=== PATIENT | female | born 1970 | race Caucasian/White ===

== ENCOUNTER 2018-05-02 23:02 | Inpatient (IN) | payer OTHER ==
[2018-05-03] MEDS ORDERED: BISACODYL 10 MG SUPP PR
[2018-05-03] MEDS ORDERED: AL HYDROX/MG HYDROX/SIMETH 30 ML CUP PO (01:30)
[2018-05-03] MEDS ORDERED: ACETAMINOPHEN 325 MG TAB PO (01:30)
[2018-05-03] MEDS ORDERED: OXYCODONE/ACETAMINOPHEN (10/325) TAB PO ×3 (01:30→21:30)
[2018-05-03] MEDS ORDERED: PROCHLORPERAZINE 10 MG TAB PO (01:30)
[2018-05-03] MEDS ORDERED: NACL 0.9% 3 ML SYG IV (01:30)
[2018-05-03] MEDS: OXYCODONE/ACETAMINOPHEN (10/325) TAB PO ×5 (02:35→23:54)
[2018-05-03 07:09] LABS: ADD MAN DIFF? NO
[2018-05-03 07:14] LABS: WHITE BLOOD COUNT 5.3 10^3/ul (4.8-10.8)
[2018-05-03 07:14] LABS: BASOPHILS % 0.2 % (0.0-2.0); EOSINOPHILS # 0.2 10^3/ul (0.0-0.5); EOSINOPHILS % 3.4 % (0.0-7.0); HEMATOCRIT 25.1 % (37.0-47.0); HEMOGLOBIN 8.1 g/dl (12.0-16.0); LYMPHOCYTES # 1.6 10^3/ul (0.8-2.9); LYMPHOCYTES % 30.7 % (15.0-51.0); MEAN CORPUSCULAR HEMOGLOBIN 29.3 pg (29.0-33.0); MEAN CORPUSCULAR HGB CONC 32.3 g/dl (32.0-37.0); MEAN CORPUSCULAR VOLUME 90.9 fl (82.0-101.0); MEAN PLATELET VOLUME 9.9 fl (7.4-10.4); MONOCYTE # 0.5 10^3/ul (0.3-0.9); MONOCYTES % 9.7 % (0.0-11.0); NEUTROPHILS % 55.4 % (39.0-77.0); PLATELET COUNT 319 10^3/UL (140-415); RED BLOOD COUNT 2.76 10^6/ul (4.20-5.40); RED CELL DISTRIBUTION WIDTH 12.9 % (11.5-14.5)
[2018-05-03 07:34] LABS: ALANINE AMINOTRANSFERASE 37 IU/L (13-69); ALBUMIN 2.6 g/dl (3.3-4.9); ALBUMIN/GLOBULIN RATIO 0.89; ALKALINE PHOSPHATASE 101 IU/L (42-121); ANION GAP 1 (5-13); ASPARTATE AMINO TRANSFERASE 34 IU/L (15-46); BILIRUBIN,INDIRECT 0.3 mg/dl (0-1.1); BILIRUBIN,TOTAL 0.3 mg/dl (0.2-1.3); BLOOD UREA NITROGEN 7 mg/dl (7-20); CALCIUM 8.3 mg/dl (8.4-10.2); CARBON DIOXIDE 32 mmol/L (21-31); CHLORIDE 103 mmol/L (97-110); CREATININE 0.45 mg/dl (0.44-1.00); GLUCOSE 103 mg/dl (70-220); POTASSIUM 3.9 mmol/L (3.5-5.1); SODIUM 136 mmol/L (135-144); TOTAL PROTEIN 5.5 g/dl (6.1-8.1)
[2018-05-03] MEDS: TRIAMCINOLONE ACET 0.1% ORAB 5 GM MT (08:35)
[2018-05-03] MEDS: LIDOCAINE 2% VISC 15 ML CUP TOP (13:52)
[2018-05-03] MEDS: POLYETHYLENE GLYCOL 17 GM PACKET PO (13:53)
[2018-05-03 14:11] LABS: ADD UMIC YES; UR ASCORBIC ACID NEGATIVE (NEGATIVE); UR BACTERIA FEW /HPF (NONE SEEN); UR BILIRUBIN (Dip) NEGATIVE (NEGATIVE); UR BLOOD (Dip) 2+ mg/dL (NEGATIVE); UR CLARITY CLEAR (CLEAR); UR COLOR YELLOW (YELLOW); UR GLUCOSE (Dip) NEGATIVE (NEGATIVE); UR KETONES (Dip) NEGATIVE (NEGATIVE); UR LEUKOCYTE ESTERASE (Dip) NEGATIVE Leu/ul (NEGATIVE); UR NITRITE (Dip) NEGATIVE (NEGATIVE); UR RBC 2 /HPF (0-5); UR SQUAMOUS EPITHELIAL CELL FEW /HPF (FEW); UR TOTAL PROTEIN (Dip) NEGATIVE (NEGATIVE); UR UROBILINOGEN (Dip) NEGATIVE (NEGATIVE); UR WBC 2 /HPF (0-5)
[2018-05-03] MEDS: DOCUSATE SODIUM 100 MG CAP PO ×2 (20:01→21:59)
[2018-05-03] MEDS: SENNA TAB PO (20:01)
[2018-05-03] MEDS: SOD FERRIC GLUC COMPLX 125 MG in SOD CHLORIDE 0.9% 100 ML IVPB (21:58)
[2018-05-04] MEDS: OXYCODONE/ACETAMINOPHEN (10/325) TAB PO ×6 (04:17→23:52)
[2018-05-04] MEDS: DOCUSATE SODIUM 100 MG CAP PO ×2 (08:18→20:00)
[2018-05-04] MEDS: POLYETHYLENE GLYCOL 17 GM PACKET PO (08:18)
[2018-05-04] MEDS: TRIAMCINOLONE ACET 0.1% ORAB 5 GM MT ×3 (08:35→18:39)
[2018-05-04] MEDS: SOD FERRIC GLUC COMPLX 125 MG in SOD CHLORIDE 0.9% 100 ML IVPB (17:16)
[2018-05-04] MEDS: SENNA TAB PO (20:01)
[2018-05-05] MEDS: OXYCODONE/ACETAMINOPHEN (10/325) TAB PO ×6 (04:43→23:56)
[2018-05-05] MEDS: METHOCARBAMOL 750 MG TAB PO (04:46)
[2018-05-05] MEDS: POLYETHYLENE GLYCOL 17 GM PACKET PO (08:28)
[2018-05-05] MEDS: DOCUSATE SODIUM 100 MG CAP PO ×2 (08:28→21:00)
[2018-05-05] MEDS: TRIAMCINOLONE ACET 0.1% ORAB 5 GM MT ×3 (08:32→18:06)
[2018-05-05] MEDS: METOPROLOL (XL) 25 MG TAB PO ×2 (09:10→20:02)
[2018-05-05] MEDS: BACLOFEN 10 MG TAB PO ×2 (12:12→19:57)
[2018-05-05] MEDS: SOD FERRIC GLUC COMPLX 125 MG in SOD CHLORIDE 0.9% 100 ML IVPB (15:48)
[2018-05-05] MEDS: SENNA TAB PO (21:00)
[2018-05-06] MEDS: OXYCODONE/ACETAMINOPHEN (10/325) TAB PO ×6 (03:53→23:55)
[2018-05-06 06:38] LABS: ADD MAN DIFF? NO
[2018-05-06 06:45] LABS: BASOPHILS % 0.3 % (0.0-2.0); EOSINOPHILS # 0.1 10^3/ul (0.0-0.5); EOSINOPHILS % 1.9 % (0.0-7.0); HEMATOCRIT 29.6 % (37.0-47.0); HEMOGLOBIN 9.6 g/dl (12.0-16.0); LYMPHOCYTES # 1.8 10^3/ul (0.8-2.9); LYMPHOCYTES % 28.9 % (15.0-51.0); MEAN CORPUSCULAR HGB CONC 32.4 g/dl (32.0-37.0); MEAN CORPUSCULAR VOLUME 89.4 fl (82.0-101.0); MEAN PLATELET VOLUME 9.5 fl (7.4-10.4); MONOCYTE # 0.4 10^3/ul (0.3-0.9); MONOCYTES % 7.1 % (0.0-11.0); NEUTROPHIL # 3.8 10^3/ul (1.6-7.5); NEUTROPHILS % 61.3 % (39.0-77.0); PLATELET COUNT 442 10^3/UL (140-415); RED BLOOD COUNT 3.31 10^6/ul (4.20-5.40); RED CELL DISTRIBUTION WIDTH 13.2 % (11.5-14.5)
[2018-05-06 06:45] LABS: WHITE BLOOD COUNT 6.2 10^3/ul (4.8-10.8)
[2018-05-06 07:21] LABS: ANION GAP 9 (5-13); BLOOD UREA NITROGEN 10 mg/dl (7-20); CALCIUM 8.9 mg/dl (8.4-10.2); CARBON DIOXIDE 26 mmol/L (21-31); CHLORIDE 102 mmol/L (97-110); CREATININE 0.53 mg/dl (0.44-1.00); GLUCOSE 98 mg/dl (70-220); MAGNESIUM 1.9 mg/dl (1.7-2.5); PHOSPHORUS 3.6 mg/dl (2.5-4.9); POTASSIUM 4.1 mmol/L (3.5-5.1); SODIUM 137 mmol/L (135-144)
[2018-05-06] MEDS: TRIAMCINOLONE ACET 0.1% ORAB 5 GM MT ×3 (08:35→19:21)
[2018-05-06] MEDS: POLYETHYLENE GLYCOL 17 GM PACKET PO (09:00)
[2018-05-06] MEDS: FERROUS FUMARATE (SR) TAB PO ×2 (10:54→20:01)
[2018-05-06] MEDS: DOCUSATE SODIUM 100 MG CAP PO ×2 (10:54→20:01)
[2018-05-06] MEDS: BACLOFEN 10 MG TAB PO ×3 (10:55→20:01)
[2018-05-06] MEDS: METOPROLOL (XL) 50 MG TAB PO ×2 (10:57→20:01)
[2018-05-06] MEDS: SENNA TAB PO (20:01)
[2018-05-07] MEDS: OXYCODONE/ACETAMINOPHEN (10/325) TAB PO ×5 (03:40→20:50)
[2018-05-07] MEDS: POLYETHYLENE GLYCOL 17 GM PACKET PO (08:59)
[2018-05-07] MEDS: FERROUS FUMARATE (SR) TAB PO ×2 (09:04→20:41)
[2018-05-07] MEDS: BACLOFEN 10 MG TAB PO ×3 (09:05→20:41)
[2018-05-07] MEDS: TRIAMCINOLONE ACET 0.1% ORAB 5 GM MT ×3 (09:05→16:27)
[2018-05-07] MEDS: DOCUSATE SODIUM 100 MG CAP PO ×2 (09:09→21:00)
[2018-05-07] MEDS: METOPROLOL (XL) 50 MG TAB PO ×2 (09:10→20:48)
[2018-05-07] MEDS: SENNA TAB PO (21:00)
[2018-05-08] MEDS: OXYCODONE/ACETAMINOPHEN (10/325) TAB PO ×6 (00:08→19:49)
[2018-05-08] MEDS: DOCUSATE SODIUM 100 MG CAP PO ×2 (08:14→21:00)
[2018-05-08] MEDS: BACLOFEN 10 MG TAB PO ×3 (08:15→21:42)
[2018-05-08] MEDS: FERROUS FUMARATE (SR) TAB PO ×2 (08:15→21:40)
[2018-05-08] MEDS: POLYETHYLENE GLYCOL 17 GM PACKET PO (08:19)
[2018-05-08] MEDS: TRIAMCINOLONE ACET 0.1% ORAB 5 GM MT ×3 (08:35→18:25)
[2018-05-08] MEDS: LORATADINE/PSEUDOEPHED (SR) TAB PO ×2 (10:34→21:41)
[2018-05-08] MEDS: AMLODIPINE 2.5 MG TAB PO ×2 (10:35→21:41)
[2018-05-08] MEDS: METOPROLOL (XL) 50 MG TAB PO ×2 (10:37→21:42)
[2018-05-08] MEDS: SENNA TAB PO (21:00)
[2018-05-09] MEDS: OXYCODONE/ACETAMINOPHEN (10/325) TAB PO ×7 (01:12→23:58)
[2018-05-09 07:01] LABS: ADD MAN DIFF? NO
[2018-05-09 07:09] LABS: BASOPHILS % 0.2 % (0.0-2.0); EOSINOPHILS # 0.2 10^3/ul (0.0-0.5); EOSINOPHILS % 1.7 % (0.0-7.0); HEMATOCRIT 30.5 % (37.0-47.0); HEMOGLOBIN 9.8 g/dl (12.0-16.0); LYMPHOCYTES # 2.2 10^3/ul (0.8-2.9); LYMPHOCYTES % 25.8 % (15.0-51.0); MEAN CORPUSCULAR HEMOGLOBIN 29.5 pg (29.0-33.0); MEAN CORPUSCULAR HGB CONC 32.1 g/dl (32.0-37.0); MEAN CORPUSCULAR VOLUME 91.9 fl (82.0-101.0); MEAN PLATELET VOLUME 9.8 fl (7.4-10.4); MONOCYTE # 0.6 10^3/ul (0.3-0.9); MONOCYTES % 6.9 % (0.0-11.0); NEUTROPHIL # 5.6 10^3/ul (1.6-7.5); NEUTROPHILS % 64.8 % (39.0-77.0); PLATELET COUNT 458 10^3/UL (140-415); RED BLOOD COUNT 3.32 10^6/ul (4.20-5.40); RED CELL DISTRIBUTION WIDTH 13.4 % (11.5-14.5)
[2018-05-09 07:09] LABS: WHITE BLOOD COUNT 8.6 10^3/ul (4.8-10.8)
[2018-05-09 07:34] LABS: ANION GAP 9 (5-13); BLOOD UREA NITROGEN 12 mg/dl (7-20); CALCIUM 9.2 mg/dl (8.4-10.2); CARBON DIOXIDE 27 mmol/L (21-31); CHLORIDE 102 mmol/L (97-110); CREATININE 0.58 mg/dl (0.44-1.00); Estimated GFR > 60 mL/min (>60); GLUCOSE 90 mg/dl (70-220); MAGNESIUM 1.9 mg/dl (1.7-2.5); PHOSPHORUS 3.8 mg/dl (2.5-4.9); POTASSIUM 4.2 mmol/L (3.5-5.1); SODIUM 138 mmol/L (135-144)
[2018-05-09] MEDS: METOPROLOL (XL) 50 MG TAB PO ×2 (09:00→20:03)
[2018-05-09] MEDS: POLYETHYLENE GLYCOL 17 GM PACKET PO (09:04)
[2018-05-09] MEDS: DOCUSATE SODIUM 100 MG CAP PO ×2 (09:04→20:10)
[2018-05-09] MEDS: BACLOFEN 10 MG TAB PO ×3 (09:05→20:03)
[2018-05-09] MEDS: FERROUS FUMARATE (SR) TAB PO ×2 (09:05→20:03)
[2018-05-09] MEDS: LORATADINE/PSEUDOEPHED (SR) TAB PO ×2 (09:05→20:04)
[2018-05-09] MEDS: TRIAMCINOLONE ACET 0.1% ORAB 5 GM MT ×3 (09:06→18:35)
[2018-05-09] MEDS: AMLODIPINE 5 MG TAB PO ×2 (10:00→20:04)
[2018-05-09] MEDS: SENNA TAB PO (20:10)
[2018-05-10] MEDS: OXYCODONE/ACETAMINOPHEN (10/325) TAB PO ×6 (03:58→23:57)
[2018-05-10] MEDS: TRIAMCINOLONE ACET 0.1% ORAB 5 GM MT ×3 (08:02→17:36)
[2018-05-10] MEDS: POLYETHYLENE GLYCOL 17 GM PACKET PO (09:00)
[2018-05-10] MEDS: DOCUSATE SODIUM 100 MG CAP PO ×2 (09:08→20:05)
[2018-05-10] MEDS: BACLOFEN 10 MG TAB PO ×3 (09:09→20:05)
[2018-05-10] MEDS: LORATADINE/PSEUDOEPHED (SR) TAB PO ×2 (09:09→20:05)
[2018-05-10] MEDS: FERROUS FUMARATE (SR) TAB PO ×2 (09:09→20:04)
[2018-05-10] MEDS: METOPROLOL (XL) 50 MG TAB PO ×2 (09:13→20:06)
[2018-05-10] MEDS: AMLODIPINE 5 MG TAB PO (09:13)
[2018-05-10] MEDS: LACTULOSE 30ML CUP PO ×2 (15:21→15:22)
[2018-05-10] MEDS: SENNA TAB PO (20:05)
[2018-05-11] MEDS: OXYCODONE/ACETAMINOPHEN (10/325) TAB PO ×6 (03:54→23:53)
[2018-05-11] MEDS: CEPASTAT LOZENGE MT (04:14)
[2018-05-11] MEDS: TRIAMCINOLONE ACET 0.1% ORAB 5 GM MT (08:35)
[2018-05-11] MEDS: POLYETHYLENE GLYCOL 17 GM PACKET PO (09:00)
[2018-05-11] MEDS: METOPROLOL (XL) 50 MG TAB PO ×2 (09:34→20:07)
[2018-05-11] MEDS: BACLOFEN 10 MG TAB PO ×3 (09:34→20:07)
[2018-05-11] MEDS: DOCUSATE SODIUM 100 MG CAP PO ×2 (09:34→20:07)
[2018-05-11] MEDS: FERROUS FUMARATE (SR) TAB PO ×2 (09:34→20:04)
[2018-05-11] MEDS: LORATADINE/PSEUDOEPHED (SR) TAB PO ×2 (09:35→20:04)
[2018-05-11] MEDS: AMLODIPINE 5 MG TAB PO ×2 (09:39→20:08)
[2018-05-11] MEDS: SENNA TAB PO (20:04)
[2018-05-12] MEDS: OXYCODONE/ACETAMINOPHEN (10/325) TAB PO ×6 (03:49→20:07)
[2018-05-12] MEDS: DOCUSATE SODIUM 100 MG CAP PO ×2 (08:47→21:00)
[2018-05-12] MEDS: AMLODIPINE 5 MG TAB PO ×2 (08:47→21:52)
[2018-05-12] MEDS: LORATADINE/PSEUDOEPHED (SR) TAB PO ×2 (08:48→21:52)
[2018-05-12] MEDS: TRIAMCINOLONE ACET 0.1% ORAB 5 GM MT ×3 (08:48→18:36)
[2018-05-12] MEDS: BACLOFEN 10 MG TAB PO ×3 (08:48→21:52)
[2018-05-12] MEDS: METOPROLOL (XL) 50 MG TAB PO ×2 (08:48→21:52)
[2018-05-12] MEDS: FERROUS FUMARATE (SR) TAB PO ×2 (08:48→21:51)
[2018-05-12] MEDS: POLYETHYLENE GLYCOL 17 GM PACKET PO (08:51)
[2018-05-12] MEDS: SENNA TAB PO (21:00)
[2018-05-13] MEDS: OXYCODONE/ACETAMINOPHEN (10/325) TAB PO ×7 (00:09→23:48)
[2018-05-13 07:06] LABS: ADD MAN DIFF? NO
[2018-05-13 07:10] LABS: BASOPHILS % 0.6 % (0.0-2.0); EOSINOPHILS # 0.1 10^3/ul (0.0-0.5); EOSINOPHILS % 1.7 % (0.0-7.0); HEMATOCRIT 34.9 % (37.0-47.0); HEMOGLOBIN 11.1 g/dl (12.0-16.0); LYMPHOCYTES # 2.5 10^3/ul (0.8-2.9); LYMPHOCYTES % 35.5 % (15.0-51.0); MEAN CORPUSCULAR HEMOGLOBIN 29.4 pg (29.0-33.0); MEAN CORPUSCULAR HGB CONC 31.8 g/dl (32.0-37.0); MEAN CORPUSCULAR VOLUME 92.3 fl (82.0-101.0); MEAN PLATELET VOLUME 9.8 fl (7.4-10.4); MONOCYTE # 0.7 10^3/ul (0.3-0.9); MONOCYTES % 9.3 % (0.0-11.0); NEUTROPHIL # 3.7 10^3/ul (1.6-7.5); NEUTROPHILS % 52.5 % (39.0-77.0); PLATELET COUNT 544 10^3/UL (140-415); RED BLOOD COUNT 3.78 10^6/ul (4.20-5.40)
[2018-05-13 07:10] LABS: WHITE BLOOD COUNT 7.1 10^3/ul (4.8-10.8)
[2018-05-13 07:48] LABS: ANION GAP 13 (5-13); BLOOD UREA NITROGEN 19 mg/dl (7-20); CALCIUM 8.9 mg/dl (8.4-10.2); CARBON DIOXIDE 24 mmol/L (21-31); CHLORIDE 103 mmol/L (97-110); CREATININE 0.55 mg/dl (0.44-1.00); Estimated GFR > 60 mL/min (>60); GLUCOSE 87 mg/dl (70-220); MAGNESIUM 1.9 mg/dl (1.7-2.5); POTASSIUM 3.8 mmol/L (3.5-5.1); SODIUM 140 mmol/L (135-144)
[2018-05-13 08:19] LABS: ADD UMIC YES; UR ASCORBIC ACID NEGATIVE (NEGATIVE); UR BACTERIA FEW /HPF (NONE SEEN); UR BILIRUBIN (Dip) NEGATIVE (NEGATIVE); UR BLOOD (Dip) 3+ mg/dL (NEGATIVE); UR CLARITY SLIGHTLY CLOUDY (CLEAR); UR COLOR YELLOW (YELLOW); UR GLUCOSE (Dip) NEGATIVE (NEGATIVE); UR KETONES (Dip) NEGATIVE (NEGATIVE); UR LEUKOCYTE ESTERASE (Dip) TRACE Leu/ul (NEGATIVE); UR MUCUS FEW /HPF (NONE SEEN); UR NITRITE (Dip) NEGATIVE (NEGATIVE); UR RBC 154 /HPF (0-5); UR SPECIFIC GRAVITY (Dip) 1.027 (1.003-1.030); UR SQUAMOUS EPITHELIAL CELL FEW /HPF (FEW); UR TOTAL PROTEIN (Dip) NEGATIVE (NEGATIVE); UR UROBILINOGEN (Dip) NEGATIVE (NEGATIVE); UR WBC 19 /HPF (0-5)
[2018-05-13] MEDS: TRIAMCINOLONE ACET 0.1% ORAB 5 GM MT ×3 (08:35→19:19)
[2018-05-13] MEDS: METOPROLOL (XL) 50 MG TAB PO ×2 (09:00→21:58)
[2018-05-13] MEDS: POLYETHYLENE GLYCOL 17 GM PACKET PO ×2 (09:00→10:04)
[2018-05-13] MEDS: LORATADINE/PSEUDOEPHED (SR) TAB PO ×2 (10:04→21:57)
[2018-05-13] MEDS: FERROUS FUMARATE (SR) TAB PO ×2 (10:04→21:57)
[2018-05-13] MEDS: AMLODIPINE 5 MG TAB PO ×2 (10:05→21:57)
[2018-05-13] MEDS: DOCUSATE SODIUM 100 MG CAP PO ×2 (10:05→21:00)
[2018-05-13] MEDS: BACLOFEN 10 MG TAB PO ×3 (10:05→21:57)
[2018-05-13] MEDS: SENNA TAB PO (21:00)
[2018-05-14] MEDS: OXYCODONE/ACETAMINOPHEN (10/325) TAB PO ×3 (03:59→12:35)
[2018-05-14] MEDS: BACLOFEN 10 MG TAB PO ×2 (08:57→12:37)
[2018-05-14] MEDS: DOCUSATE SODIUM 100 MG CAP PO (09:00)
[2018-05-14] MEDS: TRIAMCINOLONE ACET 0.1% ORAB 5 GM MT (09:01)
== END 2018-05-14 15:20 | disposition home health service (06) | DRG 560 ==
LOC: VRC 23:02
PROC: F08Z1ZZ Dressing Techniques Treatment (ICD-10-PCS; principal; 2018-05-03)
PROC: F08Z0ZZ Bathing/Showering Techniques Treatment (ICD-10-PCS; 2018-05-03)
PROC: F08Z2ZZ Grooming/Personal Hygiene Treatment (ICD-10-PCS; 2018-05-03)
PROC: F07Z5ZZ Bed Mobility Treatment (ICD-10-PCS; 2018-05-03)
PROC: F07Z8ZZ Transfer Training Treatment (ICD-10-PCS; 2018-05-03)
PROC: F07Z9ZZ Gait Training/Functional Ambulation Treatment (ICD-10-PCS; 2018-05-03)
DX: Z47.89 Encounter for other orthopedic aftercare (principal); Z68.41 Body mass index [BMI] 40.0-44.9, adult; E66.01 Morbid (severe) obesity due to excess calories; D50.9 Iron deficiency anemia, unspecified; F11.90 Opioid use, unspecified, uncomplicated; G89.18 Other acute postprocedural pain; H69.83 Other specified disorders of Eustachian tube, bilateral; K59.00 Constipation, unspecified; M26.601 Right temporomandibular joint disorder, unspecified; R03.0 Elevated blood-pressure reading, without diagnosis of hypertension; R26.2 Difficulty in walking, not elsewhere classified; R26.89 Other abnormalities of gait and mobility; S01.552A Open bite of oral cavity, initial encounter
CPT/HCPCS: 80048; 80053; 81001; 83735; 84100; 85025; 87081; 87086; 93970; 97110; 97112; 97116; 97150; 97163; 97167; 97530; 97535; 97542